=== PATIENT | female | born 1990 | race Caucasian/White ===

== ENCOUNTER 2021-07-20 04:21 | Inpatient (IN) | payer OTHER ==
--- OUTSIDE RECORDS SUMMARY | 2021-07-20 04:23 | XMS REPORT | Continuity of Care Document ---
:1990 Author Organization [facility] t Address [address] [place] [address] Dr. Wolfe [address] [place] [id number] Care Team Providers Name Role Phone Shanda PALMA Attending Clinician Unavailable Payers Payer Name Policy Type Policy Number Effective Date Expiration Date S jn [place] [facility] [id number] 2021 HEALTH 00:00:00 [place] [id number] 2020 00:00:00 FOR[facility]LY [facility] [id number] 2015 CHOICE MEDICAID 00:00:00 Problems This patient has no known problems. Allergies, Adverse Reactions, Alerts Allergy Allergy Status Severity Reaction(s) Onset Inactive Treating Comm ents Source Name Type Date Date Clinician NO KNOWN Drug Active [facility] ALLERGIE Class [facility] of [facility] Medications This patient has no known medications. Procedures This patient has no known procedures. Encounters Start End Encounter Admission Attending Care Care Encounter Source Date/Time Date/Time Type Type Clinicians Facility Department ID 2021-02-11 2021-02-11 Outpatient Shanda PALMA [facility] [id number] Univers 16:45:00 16:45:00 [id number]-11 2021-02-11 Outpatient Shanda PALMA [facility] [id number] Univers 16:45:00 16:45:00 AJAY its[facility]er o [facility] 2021-02-03 2021-02-03 Outpatient Shanda PALMA [facility] [id number] Univers 18:00:00 18:00:00 AJAY [id number] itsameer o [facility] 2021-02-03 2021-02-03 Outpatient Shanda PALMA [facility] [id number] Univers 18:00:00 18:00:[facility] 2021-02-02 2021-02-02 Outpatient Shanda PALMA [facility] [id number] Univers 15:45:00 15:45:00 ROSHUNDA [id number] ity o f [facility] 2021-02-02 2021-02-02 Outpatient Shanda PALMA [facility] [id number] Univers 15:45:00 15:45:00 ROSNDA itsameer o [facility] 2021-01-27 2021-01-27 Outpatient R MINERVA [facility] [id number] Univers 12:00:00 12:00:00 ROSHUNDA [id number] itsameer o f [facility] 2021-01-27 2021-01-27 Outpatient Shanda PALMA [facility] [id number] Univers 12:00:00 12:00:00 ROSHUNDA itsameer o [facility] 2020-12-30 2020-12-30 Outpatient Shanda PALMA [facility] [id number] Univers 12:45:00 12:45:00 ROSHUNDA [id number] itsameer o [facility] 2020-12-30 2020-12-30 Outpatient Shanda PALMA [facility] [id number] Univers 12:45:00 12:45:00 ROSNDA ity o [facility] 2020-12-18 2020-12-18 Outpatient R [facility] [id number] Univers 15:00:00 15:00:00 [id number] [facility] 2020-12-18 2020-12-18 Outpatient R [facility] [id number] Univers 13:30:00 13:30:00 [facility] 2020-12-02 2020-12-02 Outpatient R [facility] [id number] Univers 12:45:00 12:45:00 [id number] [facility] 2020-12-02 2020-12-02 Outpatient R MINERVA [facility] [id number] Univers 12:45:00 12:45:00 ROSNDA [facility] Results This patient has no known results.
[2021-07-20] MEDS ORDERED: METHYLERGONOVINE 0.2MG/ML AMP IM PRN (04:49)
[2021-07-20] MEDS ORDERED: PROMETHAZINE INJ 25 MG/ML AMP IM PRN (04:49)
[2021-07-20] MEDS ORDERED: BUTORPHANOL 1 MG/ML INJ IV PRN (04:49)
[2021-07-20] MEDS ORDERED: CARBOPROST TROME 250 MCG/ML IM PRN (04:49)
[2021-07-20] MEDS ORDERED: Ringers Lactate 1,000 ML IV PRN (04:49)
[2021-07-20] MEDS ORDERED: Ringers Lactate 1,000 ML IV SCH (05:00)
[2021-07-20] MEDS ORDERED: OXYTOCIN/LR 20 UNIT/1,000 ML BAG IV SCH ×2 (05:00→10:00)
[2021-07-20 05:09] VITALS: BMI 22.8
[2021-07-20 05:59] LABS: Hematocrit 32.6 % (36.0-45.0); Lymphocytes % 21.3 % (15.3-44.8); MPV 7.8 fL (7.6-11.3); RBC Red Blood Cell Count 3.56 M/uL (3.86-4.86)
[2021-07-20 06:00] LABS: Urine Appearance CLOUDY (Clear); Urine Bilirubin NEGATIVE (Negative); Urine Blood NEGATIVE (Negative); Urine Color YELLOW (Yellow); Urine Glucose NEGATIVE (Negative); Urine Protein NEGATIVE (Negative); Urine Urobilinogen 0.2 mg/dL (0.2-1.0); Urine pH 7.5 (5.0-7.0)
[2021-07-20 06:05] LABS: Urine Microscopic Reflex ORDER UMIC
[2021-07-20 06:13] LABS: Urine Bacteria <20 /HPF (<20); Urine RBC NONE SEEN /HPF (NONE SEEN)
[2021-07-20] MEDS ORDERED: BUPIVACAINE 0.25% PF 10 ML VIAL IJ PRN (07:10)
[2021-07-20] MEDS ORDERED: ROPIVACAINE HCL 0.2% 20ML AMP IV ONE (07:10)
[2021-07-20] MEDS ORDERED: FENTANYL CITR 100 MCG/2 ML IV ONE (07:10)
[2021-07-20] MEDS ORDERED: 0.2% ROPIVACAINE (200 MG/100 ML) BAG EP ONE (07:14)
--- NOTE | 2021-07-20 07:45 | PREOPHP ---
Date of Admission: 07/20/2021 History Of Present Illness: A 31-year-old, 7, para 3, AB3, at 39 weeks and 2 days for induct ion. Pros and cons of this thoroughly discussed in the office prior to admission. Family History: Maternal grandmother with diabetes. Paternal grandmother with lung cancer. Past Medical History: D and C in 2011, left tubal ectopic in 2011 also, Chlamydia infectio n in 2007. Allergies: NO ALLERGIES. Medications: vitamins prior to admission. Social History: The patient states that she does not smoke. Physical Examination: HEENT: Clear. Pupils equally round and reactive eye to light and accommodation. Conjunctivae well perfused. No oral, lingual, or buccal lesions. Chest and Lungs: Clear. Heart: Without murmurs, thrills, heaves, or rubs. Breasts: Not examined on this visit, without masses on previous visits. Abdomen: Term size. Extremities: Clear. Assessment And Plan: She is 3 cm, 60% effaced, vertex, -1 station. Rupture of membranes, clear flui d. FHTs normal, reactive. Anticipate more active labor. The patient probably will get epidural whe n she gets to 4 to 5 cm, expect more rapid progress once she reaches 5 cm. Full labor talk given. TUAN/MODL Voice ID: [id number]
[2021-07-20] MEDS ORDERED: LIDOCAINE 1% MPF 30 ML VIAL ONE (08:38)
[2021-07-20] MEDS ORDERED: DOCUSATE NA/SENNA CONC 1 TAB PO PRN (09:23)
[2021-07-20] MEDS ORDERED: Oxycodone HCl/Acetaminophen 1 TAB TAB PO PRN ×2 (09:23)
[2021-07-20] MEDS ORDERED: IBUPROFEN 600 MG TAB PO PRN (09:23)
[2021-07-20] MEDS ORDERED: BISACODYL 10 MG RECTAL SUPP RC PRN (09:23)
[2021-07-20] MEDS ORDERED: ACETAMINOPHEN 500 MG TAB PO PRN (09:23)
[2021-07-20] MEDS ORDERED: DIPHENHYDRAMINE 25 MG TAB/CAP PO PRN (09:23)
--- NOTE | 2021-07-20 09:39 | OP ---
Surgeon: Colt Roper MD Procedure In Detail: Stephany Stoddard is a 31-year-old, 7, para 3, 3 miscarriages, at 39 weeks and 2 days, came in at 3 cm, rupture of membranes, clear fluid. Went into an active labor pattern. Basically to complete where at that point epidural anesthesia was employed after where she had some d ifficulty in pushing, but within 10-15 minutes delivered spontaneously of an estimated 6-pound plus f emale, Apgars 9 and 9. Very small first-degree laceration, repaired with 2-0 chromic. Anselmo abernathy very of the placenta. Estimated blood loss 150 cc or less. Rh positive, immune to rubella, negative strep, negative COVID. Tolerated all procedures well. Final Diagnoses: Term intrauterine at 39 weeks 2 days, labor induction, vaginal delivery, epidural anesthesia. TUAN/CORINE Voice ID: [id number] Report ID: [id number]
[2021-07-21 00:22] LABS: RPR (Rapid Plasma Reagin) NON-REACT (NON-REACT)
--- NOTE | 2021-07-21 07:48 | DS ---
Hospital Course: Stephany Stoddard is a 31-year-old, 7, para 3, 3 miscarriages, 3 living childre n, 39 weeks 2 days, came in for labor induction. Delivered of a term 6-pound 11-ounce female. s 9 and 9 or possibly 9 or 10. Epidural anesthesia. Small first-degree laceration sutured with 2-0 chromic. Schultze delivery of the placenta, which was inspected and noted to be intact and normal. Less than 150 cc blood loss. Strep negative, COVID negative, Rh positive, immune to rubella. Postpa rtum; afebrile, ambulating, voiding. Lochia is normal. Will be dismissed later today to report back to my office in 6 weeks for followup to report any temperature elevation of 100 degrees or greater, severe pain, heavy bleeding, or any other type of abnormality. Requests no analgesics on dismissal. Tdap, flu shot, and COVID immunizations again offered and stressed. No post epidural problems. Final Diagnoses: Term intrauterine at 39 weeks 2 days, vaginal delivery, epidural anesthes ia. Immunizations offered. TUAN/CORINE Voice ID: [id number] Report ID: [id number]
[2021-07-21] MEDS ORDERED: Tdap (Diph,Pertuss(Acell),Tet Vac) 0.5 ML SYR IMVAC ONE (10:00)
[2021-07-21 11:38] VITALS: BP 100/69; TEMP 96.7
[2021-07-22 11:01] LABS: HBsAG Nonreactive (Nonreactive)
== END 2021-07-21 12:10 | disposition home or self-care (01) | DRG 807 ==
LOC: 2ND-WC 04:21
PROVIDERS: ADMIT Specialist; ATTEND Specialist
PROC: 10907ZC Drainage of Amniotic Fluid, Therapeutic from Products of Conception, Via Natural or Artificial Opening (ICD-10-PCS; principal; 2021-07-20)
PROC: 10E0XZZ Delivery of Products of Conception, External Approach (ICD-10-PCS; 2021-07-20)
PROC: 0HQ9XZZ Repair Perineum Skin, External Approach (ICD-10-PCS; 2021-07-20)
DX: O70.0 First degree perineal laceration during delivery (principal); Z37.0 Single live birth; Z3A.39 39 weeks gestation of pregnancy; Z23 Encounter for immunization; Z20.822 Contact with and (suspected) exposure to COVID-19
CPT/HCPCS: 36415; 81003; 81015; 85025; 86592; 86850; 86900; 86901; 87086; 87088; 87340; 90471; 90715; J0595; J2210; J2550; J2590; J2795; J3010; J7120; U0003

== ENCOUNTER 2024-08-21 09:35 | Emergency (ER) | payer SELFPAY ==
--- OUTSIDE RECORDS SUMMARY | 2024-08-21 09:40 | XMS REPORT | Continuity of Care Document ---
Author Name Unknown Address [address] [facility] [address] [place] [address] [facility] Address [address] [facility] [place] [address] Care Team Providers Care Service Order Expediter Name Role Phone Tasha Pemberton Primary Care Physician Un available [email or web address] Attending Clinician ALBARO Pineda Attending Clinician ALBARO Pineda Attending Clinician Lavernea TASHA Ku Attending Clinician Laverneab Tasha Tong Attending Clinician Unava ilable [email or web address]_S Admitting Clinician Gurjit laws Payers Payer Name Policy Type Policy Number Effective Date Expirati on Date Source [facility] [id number] 2022 00:00:00 [facility] [id number] 2021 00:00:00 [place] [id number] 2020 00:00:00 Problems Condition Name Condition Details Condition Category Status Onset Date Resolution Date Last Treatment Date Treating Clinician Comments Source Urinary tract infection without hematuria, site unspecifie d Urinary tract infection without hematuria, site unspecifie d Disease Active 12-30 00:00: 00 [facility] Supervisio n of other normal Supervisio n of other normal Disease Active 12-02 00:00: 00 [facility] Three previous spontaneou s abortions (SAB) affecting care of mother, antepartum , first trimester Three previous spontaneou s abortions (SAB) affecting care of mother, antepartum , first trimester Disease Active 12-02 00:00: 00 [facility] Multiparit y Multiparit y Disease Active 12-02 00:00: 00 [facility] Underweigh t Underweigh t Disease Active 12-02 00:00: 00 [facility] Liveborn , of villa , born in hospital by vaginal delivery Liveborn infant, of villa , born in hospital by vaginal delivery Disease Active 2017-07 00:00: 00 [facility] Normal labor Normal labor Disease Active 2017-07 00:00: 00 [facility] Admitted to labor and delivery Admitted to labor and delivery Disease Active 2017-07 00:00: 00 [facility] Full-term premature rupture of membranes with onset of labor within 24 hours of rupture Full-term premature rupture of membranes with onset of labor within 24 hours of rupture Disease Active 2017-07 00:00: 00 [facility] 37 weeks gestation of 37 weeks gestation of Disease Active 2017-07 00:00: 00 [facility] Tubal ligation status Tubal ligation status Disease Active 2017-07 00:00: 00 [facility] Anemia of mother in , antepartum Anemia of mother in , antepartum Disease Active 2017-07 00:00: 00 [facility] HRP (high risk ) , third trimester HRP (high risk ) , third trimester Disease Active 2017-07 00:00: 00 [facility] Abnormal maternal glucose tolerance, antepartum Abnormal maternal glucose tolerance, antepartum Disease Active 2017-07 004 00:00: 00 Overview: Formattin g of this note might be different from the original. Passed 3 hr [facility] Tobacco use in , antepartum Tobacco use in , antepartum Disease Active 12-21 00:00: 00 [facility] with history of ectopic , antepartum with history of ectopic , antepartum Disease Active 12-21 00:00: 00 [facility] Rubella non-immune status, antepartum Rubella non-immune status, antepartum Disease Active 10-20 00:00: 00 Overview: Formattin g of this note might be different from the original. [facility] Papanicola ou smear of cervix with high grade squamous intraepith elial lesion (HGSIL) Papanicola ou smear of cervix with high grade squamous intraepith elial lesion (HGSIL) Disease Active 10-09 00:00: 00 Overview: Formattin g of this note might be different from the original. 10/04/2012 had HGSIL/YADIRA III4/04/03 3-colpo and bx showed chronic cerviciti -[place] and negative HPV-repor ts she had cryothera py to cervix per Dr. Roper due to hx of HGSIL-den ies Dr. Roper repeating pap smear [facility] Allergies, Adverse Reactions, Alerts Allergy Name Allergy Type Status Severity Reaction(s) Onset Date Inactive Date Treating Clinician Comments Source NO KNOWN ALLERGIE S Drug Class Active [facility] Social History Social Habit Start Date Stop Date Quantity Comments Source History of tobacco use 2006-07-04 00:00:00 Cigarette Smoker [facility] ASSERTION [facility] Exposure to SARS-CoV-2 (event) 2020-11-30 00:00:00 2020-12-30 13:16:00 Not sure [facility] Alcohol intake 2020-12-30 00:00:00 2020-12-30 00:00:00 Current non-drinker of alcohol (finding) [facility] Tobacco use and exposure 2020-12-02 00:00:00 2020-12-02 00:00:00 Smokeless tobacco non-user [facility] History of Social function 2020-12-02 00:00:00 2020-12-02 00:00:00 [facility] Tobacco Comment 2020-12-02 00:00:00 2020-12-02 00:00:00 8-9 cigs/day [facility] Sex Assigned At 1990 00:00:00 1990 00:00:00 [facility] Smoking Status Start Date Stop Date Source Smokes tobacco daily 2020-12-02 00:00:00 [facility] Medications Ordered Medication Name Filled Medication Name Start Date Stop Date Current Medication? Ordering Clinician Indication Dosage Frequency Signature (SIG) Comments Components Source vit 33-iron-fol ic-dha (SELECT-OB + DHA) 29 mg iron-1 mg -250 mg combo pack 12-02 00:00: 00 Yes [id number] 1{packe t} Take 1 Packet by mouth daily. [facility] Immunizations Ordered Immunization Name Filled Immunization Name Date Status Comments Source Rubella Unknown Completed [facility] TD, NOS Unknown Completed [facility] Varicella (varivax)(chicken pox) Unknown Completed [facility] TDAP (ADACEL) VACCINE Unknown Completed [facility] MMR Unknown Completed [facility] Encounters Start Date/Time End Date/Time Encounter Type Admission Type Attending [facility] Care Facility Care Department Encounter ID Source 2023-05-03 00:00:00 2023-05-03 00:00:00 Outpatient GC_GCBZW_Ka diyala_S PRIV PRIV [id number] [facility] 2023-05-02 00:00:00 2023-05-02 00:00:00 Outpatient GC_GCBZW_Ka diyala_S PRIV PRIV [id number] [facility] 2022-12-28 09:30:00 2022-12-28 09:30:00 Outpatient ALBARO DAVIS CHERYAL [facility] [id number] [facility] 2021-02-11 16:45:00 2021-02-11 16:45:00 Outpatient TASHA BREWER [facility] [id number] [facility] 2021-02-03 18:00:00 2021-02-03 18:00:00 Outpatient TASHA BREWER [facility] [id number] [facility] 2021-02-02 15:45:00 2021-02-02 15:45:00 Outpatient TASHA BREWER [facility] [id number] [facility] 2021-01-27 12:00:00 2021-01-27 12:00:00 Outpatient TASHA BREWER [facility] [id number] [facility] 2021-01-14 00:00:00 2021-01-14 00:00:00 Patient Secure Tasha Mitchell [facility] TIPPLE SUPERVISOR [facility] [id number] [facility] 2020-12-30 12:45:00 2020-12-30 12:45:00 Outpatient TASHA BREWER [facility] [id number] [facility] 2020-12-18 13:30:00 2020-12-18 13:30:00 Outpatient Shanda [facility] [id number] [facility] 2020-12-02 12:45:00 2020-12-02 12:45:00 Outpatient TASHA BREWER [facility] [id number] [facility]
[2024-08-21] MEDS ORDERED: ONDANSETRON 4 MG/2 ML VIAL ONE (10:03)
[2024-08-21] MEDS ORDERED: KETOROLAC 30 MG/ML INJ ONE (10:04)
[2024-08-21 10:23] LABS: Absolute Lymphocytes (CBC) 1.9 K/uL (0.7-4.9); Absolute Monocytes 0.5 K/uL (0.1-1.3); Absolute Neutrophil 8.3 K/uL (1.8-8.0); Basophils % 0.2 % (0-1.3); Eosinophils % 0.2 % (0-4.4); Hematocrit 38.8 % (36.0-45.0); Hemoglobin 13.2 g/dL (12.0-15.0); MCH 31.3 pg (27.0-35.0); MCHC 34.1 g/dL (32.0-36.0); MCV 91.8 fL (80-100); Monocytes % 4.9 % (3.3-12.3); Neutrophils % 76.7 % (41.7-73.7); Nucleated Red Blood Cells % 0.1 % (0-0); Platelets 242 thou/uL (152-406); RBC Red Blood Cell Count 4.23 M/uL (3.86-4.86)
[2024-08-21 10:35] LABS: Specific Gravity 1.017 (1.005-1.030); Sqamous Epithelial <5 /HPF (None Seen); Urine Bacteria None Seen /HPF (<20); Urine Bilirubin NEGATIVE (Negative); Urine Blood Negative (Negative); Urine Clarity Turbid (Clear); Urine Color Light-Yellow (Yellow); Urine Culture Reflex Order NOT NEEDED; Urine Glucose NEGATIVE (Negative); Urine Ketones NEGATIVE (Negative); Urine Microscopic Reflex YN ORDER UMIC; Urine Mucus Slight /HPF (None Seen); Urine Nitrite NEGATIVE (Negative); Urine Protein NEGATIVE (Negative); Urine RBC None Seen /HPF (None Seen); Urine Urobilinogen Normal (Normal); Urine WBC <5 /HPF (<5)
[2024-08-21 10:38] LABS: ALT/SGPT 23 U/L (13-56); AST/SGOT 14 U/L (15-37); Albumin 3.7 g/dL (3.4-5.0); Albumin/Globulin Ratio 0.9 (1.1-1.8); Alkaline Phosphatase 62 U/L (45-117); Anion Gap 8.8 mEq/L (5.0-15.0); BUN Blood Urea Nitrogen 17 mg/dL (7-18); Bicarbonate 24 mEq/L (21-32); Bilirubin Direct 0.2 mg/dL (0-0.2); Bilirubin Indirect, Calculated 0.2 mg/dL (0.2-0.8); Bilirubin Total 0.4 mg/dL (0.2-1.0); Globulin 3.9 g/dL (2.3-3.5); Glomerular Filtration Rate 123 ml/min (=/>90); Glucose Level 103 mg/dL (74-106); Magnesium 1.9 mg/dL (1.6-2.4); Potassium 3.8 mEq/L (3.5-5.1); Protein, Total 7.6 g/dL (6.4-8.2); Sodium Level 133 mEq/L (136-145)
[2024-08-21 10:43] LABS: Troponin High Sensitivity < 3.0 pg/mL (<58.9)
[2024-08-21 10:45] LABS: Barbiturates NEGATIVE (NEGATIVE); Benzodiazepines NEGATIVE (NEGATIVE); Cocaine NEGATIVE (NEGATIVE); METHAMPHETAM NEGATIVE (NEGATIVE); Methadone NEGATIVE (NEGATIVE); Opiates NEGATIVE (NEGATIVE); Phencyclidine NEGATIVE (NEGATIVE); THC Cannibis NEGATIVE (NEGATIVE)
--- NOTE | 2024-08-21 11:05 | RAD REPORT ---
EXAM: CT brain without contrast HISTORY: Headache COMPARISON: None TECHNIQUE: Multiple contiguous axial images were obtained and a CT of the brain without contrast.. Sagittal and coronal reconstruction performed. Automated exposure control, adjustment of the mA and/or kV according to patient size, and/or iterative reconstruction. Unless otherwise specified, incidental f indings do not require dedicated imaging follow-up FINDINGS: An intracranial bleed is not seen Ventricles are normal caliber No extra-axial fluid collection noted No significant hypodensity within the brain No fluid within the visualized sinuses or mastoids noted. IMPRESSION: No acute intracranial abnormality noted. If the patient continues to have symptoms to suggest an acute intracranial abnormality then MRI of th e brain would be recommended.
--- NOTE | 2024-08-21 11:34 | ER ---
Nurse's Notes [facility] Name: Stephany Stoddard Age: 34 yrs Sex: Female : 1990 Arrival Date: 08/21/2024 Time: 09:35 Bed 15 Private MD: Diagnosis: Headache Presentation: 08/21 11:01 Chief complaint: Patient states: Nausea/Vomiting, headache X 1 month. Pt reports ld1 nonstop headache since last night at 1230. Coronavirus screen: At this time, the client does not indicate any symptoms associated with coronavirus-19. Ebola Screen: No symptoms or risks identified at this time. Initial Sepsis Screen: Does the patient meet any 2 criteria? No. Patient's initial sepsis screen is negative. Does the patient have a suspected source of infection? No. Patient's initial sepsis screen is negative. Risk Assessment: Do you want to hurt yourself or someone else? Patient reports no desire to harm self or others. Onset of symptoms was August 21, 2024 at 11:01. 11:01 Method Of Arrival: Ambulatory ld1 11:01 Acuity: CED 3 ld1 Triage Assessment: 11:01 Headache History: Denies prior headaches. General: Appears in no apparent distress. ld1 comfortable, Behavior is calm, cooperative, appropriate for age. Pain: Complains of pain in face Pain does not radiate. Pain currently is 8 out of 10 on a pain scale. Quality of pain is described as throbbing, Pain began suddenly, Also complains of nausea. EENT: No signs and/or symptoms were reported regarding the EENT system. Neuro: Level of Consciousness is awake, alert, obeys commands, Oriented to person, place, time, situation, Appropriate for age. Cardiovascular: Capillary refill < 3 seconds Patient's skin is warm and dry. Respiratory: Airway is patent Respiratory effort is even, unlabored. GI: Abdomen is flat, non-distended. : No signs and/or symptoms were reported regarding the genitourinary system. Derm: No signs and/or symptoms reported regarding the dermatologic system. Musculoskeletal: No signs and/or symptoms reported regarding the musculoskeletal system. Historical: - Allergies: : No Known Allergies; ld1 - Home Meds: : None [Active]; ld1 - PMHx: 11:01 None; ld1 - PSHx: 11:01 None; ld1 - Immunization history:: Adult Immunizations up to date. - Infectious Disease History:: Denies. - Social history:: Smoking status: Patient denies any tobacco usage or history of. Screenin:02 [facility] ED Fall Risk Assessment (Adult) History of falling in the last 3 months, ld1 including since admission No falls in past 3 months (0 pts) Confusion or Disorientation No (0 pts) Intoxicated or Sedated No (0 pts) Impaired Gait No (0 pts) Mobility Assist Device Used No (0 pt) Altered Elimination No (0 pt) Score/Fall Risk Level 0 - 2 = Low Risk Oriented to surroundings, Hourly rounding (assess needs \T\ fall precautionary measures) done. Abuse screen: Denies threats or abuse. Denies injuries from another. Nutritional screening: No deficits noted. Tuberculosis screening: No symptoms or risk factors identified. Assessment: 11:02 Reassessment: See triage assessment. Pain: Denies pain. ld1 Vital Signs: 10:38 BP 103 / 62; ld1 11:00 BP 103 / 62; Pulse 62; Resp 18; Pulse Ox 100% on R/A; Pain 8/10; ld1 11:00 Weight 54.88 kg; Height 5 ft. 4 in. ; ld1 11:00 Body Mass Index 20.77 (54.88 kg, 162.56 cm) ld1 11:00 Pain Scale: Adult ld1 ED Course: 09:38 Patient arrived in ED. im 09:41 Paulie Wall MD is Attending Physician. sp3 09:57 Aminata Lazar, YOSELIN is Primary Nurse. ld1 10:13 Inserted saline lock: 20 gauge in right antecubital area, using aseptic technique. cc6 Blood collected. Flushed with 10 mL NS. 10:40 CT Head Brain wo Cont In Process Unspecified. EDMS 11:01 Triage completed. ld1 11:01 Arm band placed on right wrist. ld1 11:02 No provider procedures requiring assistance completed. ld1 11:02 Patient has correct armband on for positive identification. Placed in gown. Bed in low ld1 position. Call light in reach. Side rails up X2. Pulse ox on. NIBP on. Door closed. Noise minimized. Warm blanket given. 11:32 Robby Bone MD is Referral Physician. sp3 11:42 IV discontinued, intact, bleeding controlled, No redness/swelling at site. ld1 Administered Medications: 11:00 Drug: Ketorolac IVP 15 mg IVP once Route: IVP; Site: right antecubital; ld1 11:00 Drug: Ondansetron IVP 4 mg IVP once; over 2 minutes Route: IVP; Site: right antecubital;ld1 Medication: 11:02 VIS not applicable for this client. ld1 Outcome: 11:33 Discharge ordered by . sp3 11:42 Discharged to home ambulatory, ld1 11:42 Condition: stable 11:42 Discharge instructions given to patient, family, Instructed on discharge instructions, follow up and referral plans. medication usage, Demonstrated understanding of instructions, follow-up care, medications, Prescriptions given X 1, 11:42 Patient left the ED. ld1 Signatures: Dispatcher [employer] EDMS Aminata Lazar RN RN ld1 Paulie Wall MD MD sp3 Rochelle Villanueva Brooke Holder cc6
--- NOTE | 2024-08-21 11:34 | EDPHYS ---
Physician Documentation [facility] Name: Stephany Stoddard Age: 34 yrs Sex: Female : 1990 Arrival Date: 08/21/2024 Time: 09:35 Bed 15 Private MD: ED Physician Paulie Wall HPI: 08/21 10:04 This 34 yrs old Female presents to ER via Unassigned with complaints of Headache, sp3 Dizziness, Nausea. 10:04 34-year-old female with no significant past medical history presents with headache for sp3 1 month progressively getting worse with now today with photosensitivity, vomiting. Patient denies any trauma, neck pain, chest pain, shortness of breath, bleeding, syncope, neurological symptoms, known sick contacts, travel history, or any other signs or symptoms on ROS at this time. Headache is described as generalized with slight worse pain in the posterior region. No vision changes reported. ROS otherwise negative.. Historical: - Allergies: 11: No Known Allergies; ld1 - Home Meds: 11: None [Active]; ld1 - PMHx: 11: None; ld1 - PSHx: 11:01 None; ld1 - Immunization history:: Adult Immunizations up to date. - Infectious Disease History:: Denies. - Social history:: Smoking status: Patient denies any tobacco usage or history of. ROS: 10:04 Constitutional: Negative for fever, chills, and weight loss, Eyes: Negative for injury, sp3 pain, redness, and discharge, ENT: Negative for injury, pain, and discharge, Neck: Negative for injury, pain, and swelling, Cardiovascular: Negative for chest pain, palpitations, and edema, Respiratory: Negative for shortness of breath, cough, wheezing, and pleuritic chest pain, Abdomen/GI: Negative for abdominal pain, nausea, vomiting, diarrhea, and constipation, Back: Negative for injury and pain, MS/Extremity: Negative for injury and deformity, Skin: Negative for injury, rash, and discoloration, Psych: Negative for depression, anxiety, suicide ideation, homicidal ideation, and hallucinations, Allergy/Immunology: Negative for hives, rash, and allergies, Endocrine: Negative for neck swelling, polydipsia, polyuria, polyphagia, and marked weight changes, Hematologic/Lymphatic: Negative for swollen nodes, abnormal bleeding, and unusual bruising, 10:04 All other systems are negative, Exam: 10:05 Constitutional: This is a well developed, well nourished patient who is awake, alert, sp3 and in no acute distress. Head/Face: Normocephalic, atraumatic. ENT: Nares patent. No nasal discharge, no septal abnormalities noted. External auditory canals are clear. Oropharynx with no redness, swelling, or masses, exudates, or evidence of obstruction, uvula midline. Mucous membranes moist. Neck: Trachea midline, no thyromegaly or masses palpated, and no cervical lymphadenopathy. Supple, full range of motion without nuchal rigidity, or vertebral point tenderness. No Meningismus. Chest/axilla: Normal chest wall appearance and motion. Nontender with no deformity. No lesions are appreciated. Cardiovascular: Regular rate and rhythm with a normal S1 and S2. No gallops, murmurs, or rubs. Normal PMI, no JVD. No pulse deficits. Respiratory: Lungs have equal breath sounds bilaterally, clear to auscultation and percussion. No rales, rhonchi or wheezes noted. No increased work of breathing, no retractions or nasal flaring. Abdomen/GI: Soft, non-tender, with normal bowel sounds. No distension or tympany. No guarding or rebound. No evidence of tenderness throughout. Back: No spinal tenderness. No costovertebral tenderness. Full range of motion. Skin: Warm, dry with normal turgor. Normal color with no rashes, no lesions, and no evidence of cellulitis. MS/ Extremity: Pulses equal, no cyanosis. Neurovascular intact. Full, normal range of motion. Neuro: Awake and alert, GCS 15, oriented to person, place, time, and situation. Cranial nerves II-XII grossly intact. Motor strength 5/5 in all extremities. Sensory grossly intact. Cerebellar exam normal. Normal gait. Psych: Awake, alert, with orientation to person, place and time. Behavior, mood, and affect are within normal limits. 10:05 Eyes: Photosensitivity noted. Pupils equal round reactive to light. Cranial nerves grossly intact. Neurological exam grossly intact. No anterior hyphema or other abnormality noted on ocular exam.. Vital Signs: 10:38 BP 103 / 62; ld1 11:00 BP 103 / 62; Pulse 62; Resp 18; Pulse Ox 100% on R/A; Pain 8/10; ld1 11:00 Weight 54.88 kg; Height 5 ft. 4 in. ; ld1 11:00 Body Mass Index 20.77 (54.88 kg, 162.56 cm) ld1 11:00 Pain Scale: Adult ld1 MDM: 09:58 Medical Screening Exam initiated sp3 10:05 Data reviewed: vital signs, nurses notes, lab test result(s), radiologic studies. ED sp3 course: 34-year-old female with headache for 1 month. Differential diagnosis includes idiopathic headache, space-occupying lesion, bleed, other neurological process, electrolyte abnormality, among others. Workup will include CT scan of the head, general labs, UA, UDS, hCG and treatment with ketorolac IV and ondansetron IV for symptomatic control. Further pharmacological interventions as indicated. Disposition pending workup and patient course.. 11:32 ED course: Patient's headache now 2/10 and significantly better. Photophobia also sp3 resolved. Will discharge patient home on diclofenac, ondansetron and follow-up with Dr. Bone neurology.. 02 10:03 Order name: Basic Metabolic Panel; Complete Time: 11:05 sp3 08/21 10:03 Order name: CBC with Diff; Complete Time: 11: sp3 08/21 10:03 Order name: Hepatic Function; Complete Time: 11: sp3 08/21 10:03 Order name: Magnesium; Complete Time: 11: sp3 08/21 10:03 Order name: Troponin High Sensitivity; Complete Time: 11:05 sp3 08/21 10:03 Order name: UDS; Complete Time: 11: sp3 08/21 10:03 Order name: Urinalysis w/ reflexes; Complete Time: 11:05 sp3 08/21 10:03 Order name: Test, Urine; Complete Time: 11:05 3 08/21 10:03 Order name: CT Head Brain wo Cont; Complete Time: 11:06 sp3 08/21 10:03 Order name: IV Saline Lock; Complete Time: 10:13 sp3 08/21 10:03 Order name: Labs collected and sent; Complete Time: 10:13 3 08/21 10:03 Order name: NPO; Complete Time: 10:08 sp3 Administered Medications: 11:00 Drug: Ketorolac IVP 15 mg IVP once Route: IVP; Site: right antecubital; ld1 11:00 Drug: Ondansetron IVP 4 mg IVP once; over 2 minutes Route: IVP; Site: right antecubital;ld1 Disposition Summary: 08/21/24 11:33 Discharge Ordered Notes: Location: Home sp3 Condition: Stable sp3 Diagnosis - Headache sp3 Followup: sp3 - With: Robby Bone MD - When: Upon discharge from the Emergency Department - Reason: Recheck today's complaints Discharge Instructions: - Discharge Summary Sheet sp3 - General Headache Without Cause sp3 Forms: - Medication Reconciliation Form sp3 - Antibiotic Education sp3 - Prescription Opioid Use sp3 - Patient Portal Instructions sp3 - Leadership Thank You Letter sp3 Prescriptions: - Diclofenac Sodium 75 mg Oral Tablet Sustained Release - take 1 tablet ORAL route 2 times per day; 30 tablet; Refills: 0, Product sp3 Selection Permitted - ondansetron 8 mg Oral Tablet,disintegrating - take 1 tablet ORAL route every 12 hours; 15 tablet; Refills: 0, Product sp3 Selection Permitted Signatures: Dispatcher [employer] EDMS Aminata Lazar RN RN ld1 Paulie Wall MD MD sp3 Corrections: (The following items were deleted from the chart) 10:04 10:04 BASIC METABOLIC PANEL+C.LAB.BRZ ordered. EDMS EDMS 10:04 10:04 CBC+H.LAB.BRZ ordered. EDMS EDMS 10:04 10:04 HEPATIC FUNCTION+C.LAB.BRZ ordered. EDMS EDMS 10:04 10:04 MAGNESIUM+C.LAB.BRZ ordered. EDMS EDMS 10:04 10:04 Troponin High Sensitivity+C.LAB.BRZ ordered. EDMS EDMS 10:04 10:04 URINE DRUG SCREEN+UC.LAB.BRZ ordered. EDMS EDMS 10:04 10:04 Urinalysis+U.LAB.BRZ ordered. EDMS EDMS 10:04 10:04 Test, Urine+UC.LAB.BRZ ordered. EDMS EDMS 10:04 10:04 Head Brain Wo Cont+CT.RAD.BRZ ordered. EDMS EDMS
[2024-08-21 11:56] VITALS: BP 103/62
[2024-08-21 11:57] VITALS: O2SAT 100
== END 2024-08-21 11:42 | disposition home or self-care (01) ==
LOC: ER 09:35
DX: R51.9 Headache, unspecified (principal); R42 Dizziness and giddiness
CPT/HCPCS: 36415; 70450; 80048; 80076; 80307; 81001; 81025; 83735; 84484; 85025; J2405